=== PATIENT | male | born 1950 | race Caucasian/White ===

== ENCOUNTER 2017-03-21 23:16 | Emergency (ER) | payer OTHER ==
--- NOTE | 2017-03-21 23:56 | EDM.PDOC ---
ED HPI GENERAL MEDICAL PROBLEM - General Chief Complaint: Lower Extremity Injury/Pain Stated Complaint: LEG SWELLING Time Seen by Provider: 03/21/17 23:35 Source of Information: Reports: Patient, Family History Limitations: Reports: No Limitations - History of Present Illness INITIAL COMMENTS - FREE TEXT/NARRATIVE: 67-year-old male with right sided knee pain, swelling, and distal leg pain and edema for the past week. No shortness of breath or cough. It started a week ago after a long trip in the car when they were moving, and then he was shoveling snow later in "kicking the snow" and later his knee was hurting. Over the past 24 hours it's gotten much worse. The swelling has worsened and the pain behind his knee and in the proximal calf is very sensitive. Onset: Gradual (Over the past week) Location: Reports: Lower Extremity, Right Quality: Reports: Ache, Sharp (With palpation or movement) Severity: Moderate Worsens with: Reports: Movement right knee Pain Score (Numeric/FACES): 5 - Related Data Allergies Allergy/AdvReac Type Severity Reaction Status Date / Time No Known Allergies Allergy Verified 03/21/17 23:32 Home Meds: Home Meds Aspirin [Halfprin] 81 mg PO DAILY 03/21/17 [History] Atenolol [Tenormin] 25 mg PO DAILY 03/21/17 [History] Losartan [Cozaar] 25 mg PO BEDTIME 03/21/17 [History] Rosuvastatin [Crestor] 10 mg PO BEDTIME 03/21/17 [History] buPROPion [Wellbutrin XL] 300 mg PO DAILY 03/21/17 [History] lamoTRIgine [Lamictal] 50 mg PO DAILY 03/21/17 [History] Past Medical History HEENT History: Reports: Cataract Cardiovascular History: Reports: Angina, CAD, High Cholesterol, Hypertension Psychiatric History: Reports: Anxiety, Depression Hematologic History: Reports: Blood Transfusion(s) - Past Surgical History HEENT Surgical History: Reports: Cataract Surgery Cardiovascular Surgical History: Reports: Coronary Artery Bypass GI Surgical History: Reports: Colonoscopy, Hernia, Inguinal Social & Family History - Tobacco Use Smoking Status *Q: Never Smoker - Caffeine Use Caffeine Use: Reports: None - Recreational Drug Use Recreational Drug Use: No Review of Systems - Review of Systems Review Of Systems: See Below Constitutional: Denies: Fever Ears: Denies: Dizziness Respiratory: Denies: Shortness of Breath, Cough GI/Abdominal: Denies: Nausea, Vomiting Musculoskeletal: Reports: Leg Pain Skin: Reports: No Symptoms Neurological: Reports: No Symptoms Psychiatric: Reports: No Symptoms ED EXAM, GENERAL - Physical Exam Exam: See Below Exam Limited By: No Limitations General Appearance: Alert, No Apparent Distress Respiratory/Chest: No Respiratory Distress, Lungs Clear Cardiovascular: Regular Rate, Rhythm Extremities: Other (Patient has an effusion in the right knee, and marked tenderness to palpation of the posterior aspect of the knee and to the proximal gastrocnemius. He also has pitting edema down to the ankle.) Neurological: Alert, Oriented Course - Vital Signs Last Recorded V/S: Last Vital Signs Temp 97.5 F 03/21/17 23:40 Pulse 87 03/21/17 23:40 Resp 18 03/21/17 23:40 BP 152/89 H 03/21/17 23:40 Pulse Ox 96 03/21/17 23:40 - Re-Assessments/Exams Free Text/Narrative Re-Assessment/Exam: 03/21/17 23:55 A right knee x-ray was obtained followed by a right leg venous ultrasound. 03/22/17 01:00 Knee x-ray showed no fracture or significant arthritis, he did have calcifications in the cartilage. A lower extremity ultrasound was then obtained that ruled out DVT, a hematoma was present in the proximal gastrocnemius as well as a Sherman cyst. A six-inch Cedric wrap was applied around the knee and I encouraged the patient to try an anti-inflammatory on a regular basis for the next 5-7 days, increase activity as tolerated and recheck next week if not improving satisfactorily. Departure - Departure Time of Disposition: 01:07 Disposition: Home, Self-Care 01 Condition: Good Clinical Impression: Hematoma of leg Qualifiers: Encounter type: initial encounter Laterality: right Qualified Code(s): S80.11XA - Contusion of right lower leg, initial encounter - Discharge Information Instructions: Hematoma, [id number] Referrals: PCP,None [Primary Care Provider] - Forms: ED Department Discharge Care Plan Goals: Use Cedric wrap for support and pressure, increase activity as tolerated and take a regular dose of ibuprofen or naproxen for the next 5-7 days. Recheck next week if not improving satisfactorily.
--- NOTE | 2017-03-22 10:23 | CR ---
Knee 3V Rt HISTORY: swelling,pain FINDINGS: No acute fracture or dislocation is identified. Meniscal calcification is noted. There is slight shayna rowing of the medial compartment. Tiny superior and inferior patellar osteophytes are noted. Soft ti ssues are unremarkable. No joint effusion is seen. IMPRESSION: Mild degenerative changes. Meniscal calcification is noted. No acute right knee abnormality is identi fied.
--- NOTE | 2017-03-22 10:26 | US ---
VL Duplex Lwr Ext Veins Ltd Rt HISTORY: knee pain with distal swelling FINDINGS: Deep venous system of the right lower extremity demonstrates normal blood flow and compressibility th roughout. Normal Doppler waveform variation is seen with respiration and calf compression. No color f low abnormality can be seen. Sherman's cyst is noted in the medial popliteal region measuring 3.4 x 2.6 x 1.3 cm. There is a mixed echogenicity area in the popliteal region measuring 3.3 x 2.4 x 7.3 cm. Appearance i s most suggestive for hematoma considering the patient's clinical history. IMPRESSION: 1. No sonographic evidence for DVT right lower extremity. 2. Probable hematoma in the popliteal region as above.
== END 2017-03-22 01:07 | disposition home or self-care (01) ==
LOC: JP.ED 23:16
DX: S80.11XA Contusion of right lower leg, initial encounter (principal); M71.21 Synovial cyst of popliteal space [Baker], right knee; E78.00 Pure hypercholesterolemia, unspecified; Z79.82 Long term (current) use of aspirin; I10 Essential (primary) hypertension; W22.8XXA Striking against or struck by other objects, initial encounter
CPT/HCPCS: 73562-26-RT; 73562-RT; 93971-26; 93971-RT; 99284-25